=== PATIENT | female | born 1935 | race Hispanic/Latino ===

== ENCOUNTER 2018-06-16 18:33 | Emergency (ER) | payer MEDICARE, OTHER ==
[2018-06-16] MEDS ORDERED: Proparacaine 0.5% Opth 15 ML BOT ONE (20:32)
== END 2018-06-16 21:05 | disposition home or self-care (01) ==
LOC: ERS 18:33
DX: J30.2 Other seasonal allergic rhinitis (principal); E78.5 Hyperlipidemia, unspecified; I10 Essential (primary) hypertension; Z79.899 Other long term (current) drug therapy; Z79.82 Long term (current) use of aspirin
CPT/HCPCS: 99283

== ENCOUNTER 2021-11-09 14:25 | Observation (INO) | payer MEDICARE, OTHER ==
[~2021-11-09 14:25] MED LIST: Iopamidol-370 76% 500 ML 1 ML ONE
[2021-11-09 15:18] LABS: #Basophils 0.1 thou/uL (0.0-0.2); #Eosinphils 0.1 thou/uL (0.0-0.7); #Lymphocytes 2.5 thou/uL (1.20-3.40); #Monocytes 0.5 thou/uL (0.11-0.59); #Neutrophils 3.5 thou/uL (1.40-6.50); %Basophils 0.8 % (0.0-1.0); %Eosinophils 2.2 % (0.0-10.0); %Lymphocytes 37.3 % (21.0-51.0); %Monocytes 7.1 % (0.0-10.0); %Neutrophils 52.5 % (42.0-75.0); Hemoglobin 14.4 g/dL (12.0-16.0); Mean Corpuscular HGB CONC 32.9 g/dL (32.0-36.0); Mean Corpuscular Hemoglobin 32.8 pg (27.0-31.0); Mean Corpuscular Volume 99.6 fL (78.0-98.0); Mean Platelet Volume 9.4 fL (7.4-10.4); Platelet Count 243 thou/uL (130-400); Red Blood Cell (RBC) Count 4.39 mill/uL (4.20-5.40); White Blood Cell (WBC) Count 6.7 thou/uL (4.8-10.8)
[2021-11-09 15:39] LABS: ALT (SGPT) 10 U/L (8-55); AST (SGOT) 15 U/L (5-34); Albumin 3.8 g/dL (3.4-4.8); Alkaline Phosphatase 75 U/L (40-110); Anion Gap 9 mmol/L (10-20); BUN (Urea Nitrogen) 16 mg/dL (9.8-20.1); Bilirubin, Total 0.5 mg/dL (0.2-1.2); Calc. Creatinine Clearance 0 mL/min (70-130); Calcium 9.2 mg/dL (7.8-10.44); Carbon Dioxide 31 mmol/L (23-31); Chloride 103 mmol/L (98-107); Globulin 2.8 g/dL (2.4-3.5); Glucose 99 mg/dL (83-110); Potassium 3.9 mmol/L (3.5-5.1); Protein, Total 6.6 g/dL (5.8-8.1); Sodium 139 mmol/L (136-145)
[2021-11-09] MEDS ORDERED: hydrALAZINE 20 MG/ML VIAL SLOW IVP PRN (16:35)
[2021-11-09 17:57] LABS: Hemoglobin A1c 5.6 % (4.0-6.0)
[2021-11-09] MEDS ORDERED: Aspirin Chewable 81 MG TAB PO SCH (18:30)
[2021-11-09] MEDS: Enoxaparin Sodium 40 MG/0.4 ML SYRINGE SC SCH ×2 (20:30→20:31)
[2021-11-09] MEDS ORDERED: Atorvastatin Calcium 40 MG TAB PO SCH (21:00)
[2021-11-10] MEDS ORDERED: Artificial Tear Sol 15 ML BOT EA EYE PRN (00:52)
[2021-11-10 00:57] VITALS: BMI 22.5
[2021-11-10] MEDS ORDERED: Acetaminophen 325 MG TAB PO PRN (01:09)
[2021-11-10 04:46] VITALS: BP 140/68; TEMP 98.1
[2021-11-10 05:07] LABS: #Basophils 0.1 thou/uL (0.0-0.2); #Eosinphils 0.2 thou/uL (0.0-0.7); #Lymphocytes 3.5 thou/uL (1.20-3.40); #Monocytes 0.7 thou/uL (0.11-0.59); #Neutrophils 4.2 thou/uL (1.40-6.50); %Eosinophils 2.5 % (0.0-10.0); %Lymphocytes 39.8 % (21.0-51.0); %Monocytes 8.4 % (0.0-10.0); %Neutrophils 48.3 % (42.0-75.0); Hemoglobin 13.6 g/dL (12.0-16.0); Mean Corpuscular Hemoglobin 32.8 pg (27.0-31.0); Mean Corpuscular Volume 99.4 fL (78.0-98.0); Mean Platelet Volume 9.6 fL (7.4-10.4); Platelet Count 232 thou/uL (130-400); RBC Distribution Width 11.9 % (11.5-14.5); Red Blood Cell (RBC) Count 4.15 mill/uL (4.20-5.40); White Blood Cell (WBC) Count 8.7 thou/uL (4.8-10.8)
[2021-11-10 05:29] LABS: Anion Gap 13 mmol/L (10-20); BUN (Urea Nitrogen) 12 mg/dL (9.8-20.1); Calc. Creatinine Clearance 59 mL/min (70-130); Calcium 9.1 mg/dL (7.8-10.44); Carbon Dioxide 27 mmol/L (23-31); Cardiac Risk 6.5 (Less than 4.5); Chloride 106 mmol/L (98-107); Cholesterol 229 mg/dl (< 200 Desired); Glucose 92 mg/dL (83-110); HDL Cholesterol 35 mg/dL (>60 Neg Risk); LDL Cholesterol, Calculated 159 mg/dL; Potassium 3.8 mmol/L (3.5-5.1); Sodium 142 mmol/L (136-145); Triglycerides 175 mg/dL (Less than 150)
[2021-11-10] MEDS ORDERED: Enoxaparin Sodium 40 MG/0.4 ML SYRINGE SC SCH (09:00)
[2021-11-10] MEDS ORDERED: Aspirin 81 mg Enteric Coated Tablet PO SCH (09:00)
== END 2021-11-10 07:40 | disposition home or self-care (01) ==
LOC: ERS 14:25 → NEURO 16:42
PROVIDERS: ADMIT Internal Medicine; ATTEND Internal Medicine
DX: R29.810 Facial weakness (principal); R51.9 Headache, unspecified; I10 Essential (primary) hypertension; E11.9 Type 2 diabetes mellitus without complications; E78.5 Hyperlipidemia, unspecified; I65.23 Occlusion and stenosis of bilateral carotid arteries
CPT/HCPCS: 70450; 70496; 70498; 70551; 80048; 80053; 80061; 82962 ×2; 83036; 84484; 85025 ×2; 97139 ×2; 99285; G0378 ×3; 36415; 36416; J1650; Q9967

== ENCOUNTER 2023-10-14 17:52 | Inpatient (IN) | payer MEDICARE, SELFPAY ==
[~2023-10-14 17:52] MED LIST changes: -Iopamidol-370 76% 500 ML 1 ML ONE; +Iopamidol-370 76% 500 ML MDV (1 ML CHARGE) ONE
[2023-10-14 19:06] LABS: Hemoglobin 13.8 g/dL (12.0-16.0); Manual Diff?? YES; Mean Corpuscular HGB CONC 33.7 g/dL (32.0-36.0); Mean Corpuscular Hemoglobin 31.7 pg (27.0-31.0); Mean Platelet Volume 11.4 fL (7.4-10.4); Platelet Count 264 10x3/uL (130-400); RBC Distribution Width 12.4 % (11.5-14.5); Red Blood Cell (RBC) Count 4.36 mill/uL (4.20-5.40); White Blood Cell (WBC) Count 8.9 10x3/uL (4.8-10.8)
[2023-10-14 19:09] LABS: Delete Auto Diff?? YES
[2023-10-14 19:32] LABS: Bilirubin Negative (Negative); Blood, Urine Negative (Negative); CAUTI Indications for Culture Alt mental st,lethar; Clarity Clear (Clear); Glucose, Urine (Dipstick) Normal (Negative); Ketone, Urine Trace mg/dL (Negative); Leukocyte Negative Leu/uL (Negative); Mucous/LPF Rare LPF (<2+); Nitrite Negative (Negative); Protein, Urine (Dipstick) 10 mg/dL (Neg-Trace); RBC/HPF 0-3 HPF (0-3); Specific Gravity, Urine 1.019 (1.002-1.036); Squamous Epithelial None Seen HPF (0-3); WBC/HPF 0-3 HPF (0-3); pH, Urine 5.5 (5.0-9.0)
[2023-10-14 19:34] LABS: ALT (SGPT) 22 U/L (8-55); AST (SGOT) 48 U/L (5-34); Albumin 3.1 g/dL (3.4-4.8); Alkaline Phosphatase 83 U/L (40-110); Anion Gap 12 mmol/L (10-20); BUN (Urea Nitrogen) 23 mg/dL (9.8-20.1); Band 8 % (5-11); Bilirubin, Total 0.8 mg/dL (0.2-1.2); Calc. Creatinine Clearance 0 mL/min (70-130); Carbon Dioxide 32 mmol/L (23-31); CellaVision Operator ID LAB.MJL; Chloride 101 mmol/L (98-107); Estimated GFR 77; Globulin 3.8 g/dL (2.4-3.5); Glucose 104 mg/dL (83-110); Large Platelets 2.9 % (0-5); Lymphocytes 7 % (21-51); Magnesium 1.9 mg/dL (1.6-2.6); Monocytes 7 % (0-10); Neutrophil 74 % (42-75); Platelet Adequacy Comment Platelets Normal; Potassium 3.3 mmol/L (3.5-5.1); Protein, Total 6.9 g/dL (5.8-8.1); RBC Morphology Within Normal Limits; Reactive Lymphocytes 5 % (0-10); Sodium 142 mmol/L (136-145); Total Cell Count 102
[2023-10-14 19:43] LABS: Bacteria/HPF Rare-Few HPF (None Seen)
[2023-10-14 19:44] LABS: Urine Culture Reflex No No
[2023-10-14] MEDS ORDERED: Aspirin Chewable 81 MG TAB ONE (20:19)
[2023-10-14] MEDS ORDERED: Enoxaparin 60 MG (0.6 mL) SYRINGE ONE (20:19)
[2023-10-14] MEDS ORDERED: cefTRIAXone (ROCEPHIN) 2 GM VIAL ONE (21:55)
[2023-10-14] MEDS ORDERED: Sodium Chloride 0.9% 100 ML ONE (21:56)
[2023-10-14] MEDS ORDERED: Ondansetron ODT 4 MG TAB SL PRN (23:30)
[2023-10-14] MEDS ORDERED: Acetaminophen 325 MG TAB PO PRN (23:30)
[2023-10-14] MEDS ORDERED: Ondansetron PF 4 MG/2 ML Vial IVP PRN (23:30)
[2023-10-14] MEDS ORDERED: Azithromycin 500 MG VIAL ONE (23:43)
[2023-10-15 00:57] VITALS: BMI 20.2
[2023-10-15] MEDS: Azithromycin 500 MG in Sodium Chloride 0.9% 250 ML 250 ML IVPB SCH (01:36)
[2023-10-15] MEDS ORDERED: Ondansetron PF 4 MG/2 ML Vial IVP PRN (01:42)
[2023-10-15] MEDS ORDERED: Ondansetron ODT 4 MG TAB PO PRN (01:42)
[2023-10-15] MEDS ORDERED: Electrolyte Replacement Protocol 1 EACH FS PRN (01:42)
[2023-10-15 02:20] LABS: Troponin I 0.042 ng/mL (< 0.028)
[2023-10-15] MEDS: Magnesium 2 GM/50 ML(in water) 2 GM in Premix 1 BAG IVPB SCH (02:52)
[2023-10-15] MEDS: Potassium Chloride 20 MEQ TAB PO SCH ×2 (02:53→06:10)
[2023-10-15 04:48] LABS: Hematocrit 36.9 % (36.0-47.0); Hemoglobin 12.2 g/dL (12.0-16.0); Manual Diff?? YES; Mean Corpuscular HGB CONC 33.1 g/dL (32.0-36.0); Mean Corpuscular Hemoglobin 31.6 pg (27.0-31.0); Mean Corpuscular Volume 95.6 fl (78.0-98.0); Mean Platelet Volume 11.4 fL (7.4-10.4); Platelet Count 239 10x3/uL (130-400); RBC Distribution Width 12.5 % (11.5-14.5); Red Blood Cell (RBC) Count 3.86 mill/uL (4.20-5.40); White Blood Cell (WBC) Count 7.1 10x3/uL (4.8-10.8)
[2023-10-15 04:54] LABS: Delete Auto Diff?? YES
[2023-10-15 05:15] LABS: Anion Gap 11 mmol/L (10-20); BUN (Urea Nitrogen) 16 mg/dL (9.8-20.1); Calc. Creatinine Clearance 66 mL/min (70-130); Calcium 7.8 mg/dL (7.8-10.44); Carbon Dioxide 29 mmol/L (23-31); Chloride 103 mmol/L (98-107); Estimated GFR 88; Glucose 80 mg/dL (83-110); Potassium 2.7 mmol/L (3.5-5.1); Sodium 140 mmol/L (136-145)
[2023-10-15 05:19] LABS: Troponin I 0.049 ng/mL (< 0.028)
[2023-10-15 05:22] LABS: Band 3 % (5-11); CellaVision Operator ID lab.dlt; Eosinophils 2 % (0-10); Large Platelets 7.1 % (0-5); Lymphocytes 10 % (21-51); Monocytes 4 % (0-10); Neutrophil 81 % (42-75); Platelet Adequacy Comment Platelets Normal; Total Cell Count 98
[2023-10-15] MEDS: cefTRIAXone\\ROCEPHIN 1 GM in Sodium Chloride 0.9% 100 ML IVPB SCH (10:21)
[2023-10-15] MEDS: Apixaban 5 MG TAB PO SCH (10:21)
[2023-10-15] MEDS: Famotidine 20 MG TAB PO SCH (10:22)
[2023-10-15] MEDS: Doxycycline 100 MG CAP PO SCH (10:22)
[2023-10-15 12:04] LABS: Potassium 4.4 mmol/L (3.5-5.1)
[2023-10-16 04:34] LABS: Hematocrit 36.1 % (36.0-47.0); Hemoglobin 12.2 g/dL (12.0-16.0); Manual Diff?? YES; Mean Corpuscular HGB CONC 33.8 g/dL (32.0-36.0); Mean Corpuscular Hemoglobin 31.8 pg (27.0-31.0); Mean Platelet Volume 11.7 fL (7.4-10.4); Platelet Count 254 10x3/uL (130-400); RBC Distribution Width 12.5 % (11.5-14.5); Red Blood Cell (RBC) Count 3.84 mill/uL (4.20-5.40); White Blood Cell (WBC) Count 7.3 10x3/uL (4.8-10.8)
[2023-10-16 04:42] LABS: Delete Auto Diff?? YES
[2023-10-16 04:55] LABS: Anion Gap 10 mmol/L (10-20); BUN (Urea Nitrogen) 13 mg/dL (9.8-20.1); Calc. Creatinine Clearance 70 mL/min (70-130); Calcium 7.9 mg/dL (7.8-10.44); Carbon Dioxide 27 mmol/L (23-31); Chloride 104 mmol/L (98-107); Estimated GFR 89; Glucose 106 mg/dL (83-110); Potassium 3.5 mmol/L (3.5-5.1); Sodium 137 mmol/L (136-145)
[2023-10-16 05:08] LABS: Band 4 % (5-11); CellaVision Operator ID LAB.CLH1; Eosinophils 1 % (0-10); Lymphocytes 23 % (21-51); Monocytes 6 % (0-10); Neutrophil 66 % (42-75); Platelet Adequacy Comment Platelets Normal; Total Cell Count 90
[2023-10-16] MEDS: Potassium Chloride 20 MEQ TAB PO SCH (09:01)
[2023-10-17] MEDS: Amlodipine 10 MG TAB PO SCH (16:07)
[2023-10-18 05:44] LABS: #Basophils 0.1 thou/uL (0.0-0.2); #Eosinphils 0.2 thou/uL (0.0-0.7); #Monocytes 0.8 thou/uL (0.11-0.59); #Neutrophils 6.4 thou/uL (1.40-6.50); %Basophils 0.6 % (0.0-1.0); %Lymphocytes 23.9 % (21.0-51.0); %Monocytes 8.4 % (0.0-10.0); %Neutrophils 64.5 % (42.0-75.0); Hematocrit 36.7 % (36.0-47.0); Hemoglobin 12.2 g/dL (12.0-16.0); Mean Corpuscular HGB CONC 33.2 g/dL (32.0-36.0); Mean Corpuscular Hemoglobin 31.4 pg (27.0-31.0); Mean Corpuscular Volume 94.6 fl (78.0-98.0); Mean Platelet Volume 12.2 fL (7.4-10.4); Platelet Count 321 10x3/uL (130-400); RBC Distribution Width 12.8 % (11.5-14.5); Red Blood Cell (RBC) Count 3.88 mill/uL (4.20-5.40); White Blood Cell (WBC) Count 9.9 10x3/uL (4.8-10.8)
[2023-10-18 06:16] LABS: Anion Gap 10 mmol/L (10-20); BUN (Urea Nitrogen) 9 mg/dL (9.8-20.1); Calc. Creatinine Clearance 74 mL/min (70-130); Calcium 8.1 mg/dL (7.8-10.44); Carbon Dioxide 25 mmol/L (23-31); Chloride 108 mmol/L (98-107); Estimated GFR 90; Glucose 89 mg/dL (83-110); Potassium 3.7 mmol/L (3.5-5.1); Sodium 139 mmol/L (136-145)
[2023-10-18] MEDS: Amlodipine 10 MG TAB PO SCH (09:52)
[2023-10-19 05:47] LABS: #Basophils 0.1 thou/uL (0.0-0.2); #Eosinphils 0.3 thou/uL (0.0-0.7); #Neutrophils 5.8 thou/uL (1.40-6.50); %Basophils 0.6 % (0.0-1.0); %Eosinophils 2.7 % (0.0-10.0); %Lymphocytes 26.5 % (21.0-51.0); %Monocytes 10.6 % (0.0-10.0); Hematocrit 36.8 % (36.0-47.0); Hemoglobin 11.8 g/dL (12.0-16.0); Mean Corpuscular HGB CONC 32.1 g/dL (32.0-36.0); Mean Corpuscular Volume 96.6 fl (78.0-98.0); Mean Platelet Volume 11.8 fL (7.4-10.4); Platelet Count 339 10x3/uL (130-400); Red Blood Cell (RBC) Count 3.81 mill/uL (4.20-5.40); White Blood Cell (WBC) Count 9.8 10x3/uL (4.8-10.8)
[2023-10-19 06:17] LABS: Anion Gap 10 mmol/L (10-20); BUN (Urea Nitrogen) 14 mg/dL (9.8-20.1); Calc. Creatinine Clearance 64 mL/min (70-130); Calcium 8.1 mg/dL (7.8-10.44); Carbon Dioxide 22 mmol/L (23-31); Chloride 108 mmol/L (98-107); Estimated GFR 87; Glucose 89 mg/dL (83-110); Potassium 4.1 mmol/L (3.5-5.1); Sodium 136 mmol/L (136-145)
[2023-10-19] MEDS: Cefdinir 300 MG CAP PO SCH (17:55)
[2023-10-20 06:23] LABS: #Basophils 0.1 thou/uL (0.0-0.2); #Eosinphils 0.1 thou/uL (0.0-0.7); #Monocytes 0.9 thou/uL (0.11-0.59); #Neutrophils 7.1 thou/uL (1.40-6.50); %Basophils 0.5 % (0.0-1.0); %Eosinophils 1.2 % (0.0-10.0); %Lymphocytes 21.4 % (21.0-51.0); %Monocytes 8.9 % (0.0-10.0); %Neutrophils 67.7 % (42.0-75.0); Hematocrit 36.9 % (36.0-47.0); Hemoglobin 12.1 g/dL (12.0-16.0); Mean Corpuscular HGB CONC 32.8 g/dL (32.0-36.0); Mean Corpuscular Volume 94.6 fl (78.0-98.0); Platelet Count 374 10x3/uL (130-400); RBC Distribution Width 12.9 % (11.5-14.5); White Blood Cell (WBC) Count 10.4 10x3/uL (4.8-10.8)
[2023-10-20 06:47] LABS: Anion Gap 9 mmol/L (10-20); BUN (Urea Nitrogen) 16 mg/dL (9.8-20.1); Calc. Creatinine Clearance 65 mL/min (70-130); Calcium 8.3 mg/dL (7.8-10.44); Carbon Dioxide 24 mmol/L (23-31); Chloride 104 mmol/L (98-107); Estimated GFR 88; Glucose 91 mg/dL (83-110); Potassium 3.6 mmol/L (3.5-5.1); Sodium 133 mmol/L (136-145)
[2023-10-20] MEDS: Cefdinir 300 MG CAP PO SCH (09:08)
[2023-10-21 07:04] LABS: #Basophils 0.1 thou/uL (0.0-0.2); #Monocytes 1.5 thou/uL (0.11-0.59); #Neutrophils 11.2 thou/uL (1.40-6.50); %Basophils 0.3 % (0.0-1.0); %Eosinophils 0.2 % (0.0-10.0); %Lymphocytes 14.2 % (21.0-51.0); %Monocytes 10.1 % (0.0-10.0); %Neutrophils 74.7 % (42.0-75.0); Hematocrit 35.1 % (36.0-47.0); Hemoglobin 11.7 g/dL (12.0-16.0); Mean Corpuscular HGB CONC 33.3 g/dL (32.0-36.0); Mean Corpuscular Hemoglobin 31.3 pg (27.0-31.0); Mean Corpuscular Volume 93.9 fl (78.0-98.0); Mean Platelet Volume 11.5 fL (7.4-10.4); Platelet Count 381 10x3/uL (130-400); Red Blood Cell (RBC) Count 3.74 mill/uL (4.20-5.40)
[2023-10-21 07:25] LABS: Anion Gap 10 mmol/L (10-20); BUN (Urea Nitrogen) 16 mg/dL (9.8-20.1); Calc. Creatinine Clearance 56 mL/min (70-130); Calcium 8.3 mg/dL (7.8-10.44); Carbon Dioxide 27 mmol/L (23-31); Chloride 104 mmol/L (98-107); Estimated GFR 84; Glucose 134 mg/dL (83-110); Potassium 3.8 mmol/L (3.5-5.1); Sodium 137 mmol/L (136-145)
[2023-10-22 05:07] LABS: #Eosinphils 0.1 thou/uL (0.0-0.7); #Monocytes 1.4 thou/uL (0.11-0.59); #Neutrophils 10.3 thou/uL (1.40-6.50); %Basophils 0.3 % (0.0-1.0); %Eosinophils 0.4 % (0.0-10.0); %Lymphocytes 14.8 % (21.0-51.0); %Monocytes 10.3 % (0.0-10.0); %Neutrophils 73.6 % (42.0-75.0); Hematocrit 33.5 % (36.0-47.0); Hemoglobin 11.3 g/dL (12.0-16.0); Mean Corpuscular HGB CONC 33.7 g/dL (32.0-36.0); Mean Corpuscular Hemoglobin 31.8 pg (27.0-31.0); Mean Corpuscular Volume 94.4 fl (78.0-98.0); Mean Platelet Volume 11.8 fL (7.4-10.4); Platelet Count 374 10x3/uL (130-400); RBC Distribution Width 13.1 % (11.5-14.5); Red Blood Cell (RBC) Count 3.55 mill/uL (4.20-5.40)
[2023-10-22 05:34] LABS: Anion Gap 9 mmol/L (10-20); BUN (Urea Nitrogen) 12 mg/dL (9.8-20.1); Calc. Creatinine Clearance 80 mL/min (70-130); Calcium 8.4 mg/dL (7.8-10.44); Carbon Dioxide 24 mmol/L (23-31); Chloride 105 mmol/L (98-107); Estimated GFR 92; Glucose 120 mg/dL (83-110); Potassium 3.4 mmol/L (3.5-5.1); Sodium 135 mmol/L (136-145)
[2023-10-22] MEDS: Potassium Chloride 20 MEQ TAB PO SCH (10:31)
[2023-10-22] MEDS: Apixaban 5 MG TAB PO SCH (20:03)
[2023-10-23] MEDS: Amlodipine 5 MG TAB PO SCH (09:47)
[2023-10-24 05:33] LABS: #Basophils 0.1 thou/uL (0.0-0.2); #Eosinphils 0.1 thou/uL (0.0-0.7); #Monocytes 1.1 thou/uL (0.11-0.59); #Neutrophils 8.2 thou/uL (1.40-6.50); %Basophils 0.4 % (0.0-1.0); %Eosinophils 0.7 % (0.0-10.0); %Lymphocytes 18.6 % (21.0-51.0); %Monocytes 9.1 % (0.0-10.0); %Neutrophils 70.8 % (42.0-75.0); Hematocrit 32.4 % (36.0-47.0); Hemoglobin 10.8 g/dL (12.0-16.0); Mean Corpuscular HGB CONC 33.3 g/dL (32.0-36.0); Mean Corpuscular Hemoglobin 31.9 pg (27.0-31.0); Mean Corpuscular Volume 95.6 fl (78.0-98.0); Mean Platelet Volume 11.5 fL (7.4-10.4); Platelet Count 404 10x3/uL (130-400); RBC Distribution Width 13.1 % (11.5-14.5); Red Blood Cell (RBC) Count 3.39 mill/uL (4.20-5.40); White Blood Cell (WBC) Count 11.6 10x3/uL (4.8-10.8)
[2023-10-24 05:53] LABS: Anion Gap 8 mmol/L (10-20); BUN (Urea Nitrogen) 13 mg/dL (9.8-20.1); Calc. Creatinine Clearance 61 mL/min (70-130); Calcium 8.5 mg/dL (7.8-10.44); Carbon Dioxide 28 mmol/L (23-31); Chloride 101 mmol/L (98-107); Estimated GFR 86; Glucose 136 mg/dL (83-110); Sodium 133 mmol/L (136-145)
[2023-10-24] MEDS: Acetaminophen 325 MG TAB PO PRN (20:46)
[2023-10-25 06:53] LABS: #Basophils 0.1 thou/uL (0.0-0.2); #Eosinphils 0.1 thou/uL (0.0-0.7); #Monocytes 0.9 thou/uL (0.11-0.59); %Basophils 0.5 % (0.0-1.0); %Eosinophils 1.1 % (0.0-10.0); %Lymphocytes 17.1 % (21.0-51.0); %Monocytes 8.8 % (0.0-10.0); %Neutrophils 71.9 % (42.0-75.0); Hematocrit 34.1 % (36.0-47.0); Mean Corpuscular HGB CONC 32.3 g/dL (32.0-36.0); Mean Corpuscular Hemoglobin 31.2 pg (27.0-31.0); Mean Corpuscular Volume 96.6 fl (78.0-98.0); Mean Platelet Volume 11.1 fL (7.4-10.4); Platelet Count 392 10x3/uL (130-400); RBC Distribution Width 13.2 % (11.5-14.5); Red Blood Cell (RBC) Count 3.53 mill/uL (4.20-5.40); White Blood Cell (WBC) Count 9.8 10x3/uL (4.8-10.8)
[2023-10-25 07:14] LABS: Anion Gap 11 mmol/L (10-20); BUN (Urea Nitrogen) 15 mg/dL (9.8-20.1); Calc. Creatinine Clearance 70 mL/min (70-130); Calcium 8.7 mg/dL (7.8-10.44); Carbon Dioxide 25 mmol/L (23-31); Chloride 104 mmol/L (98-107); Estimated GFR 89; Glucose 133 mg/dL (83-110); Potassium 3.4 mmol/L (3.5-5.1); Sodium 137 mmol/L (136-145)
[2023-10-25] MEDS: Potassium Chloride 20 MEQ TAB PO SCH (08:41)
[2023-10-25 13:58] VITALS: BP 108/70; TEMP 97.6
== END 2023-10-25 16:35 | disposition home or self-care (01) | DRG 871 ==
LOC: ERS 17:52 → 2NO 23:24 → OBSVTOIN 10-15 12:41 → MSONC 10-16 17:23 → SURG A 10-25 11:44
PROVIDERS: ADMIT Student in an Organized Health Care Education/Training Program; ATTEND Hospitalist
PROC: 3E03329 Introduction of Other Anti-infective into Peripheral Vein, Percutaneous Approach (ICD-10-PCS; 2023-10-14)
PROC: 0T9B70Z Drainage of Bladder with Drainage Device, Via Natural or Artificial Opening (ICD-10-PCS; principal; 2023-10-15)
DX: A41.9 Sepsis, unspecified organism (principal); J18.0 Bronchopneumonia, unspecified organism; I82.432 Acute embolism and thrombosis of left popliteal vein; I5A Non-ischemic myocardial injury (non-traumatic); I10 Essential (primary) hypertension; Z90.49 Acquired absence of other specified parts of digestive tract; Z98.890 Other specified postprocedural states; Z79.01 Long term (current) use of anticoagulants; Z79.899 Other long term (current) drug therapy; E78.00 Pure hypercholesterolemia, unspecified; R62.7 Adult failure to thrive; Z68.20 Body mass index [BMI] 20.0-20.9, adult
CPT/HCPCS: 36415; 51701; 70450; 71045; 71275; 72125; 80048; 80053; 81001; 82550; 83605; 83735; 84443; 84484; 85025; 87804; 93005; 93010; 96365; 96367; 96372; 96375; 96376; G0378; J0456; J0696; J1650; J3475; J3490; J7050; Q9967

== ENCOUNTER 2023-10-27 12:57 | Emergency (ER) | payer MEDICARE ==
[2023-10-27 13:45] LABS: #Basophils 0.1 thou/uL (0.0-0.2); #Eosinphils 0.2 thou/uL (0.0-0.7); #Monocytes 0.6 thou/uL (0.11-0.59); #Neutrophils 6.5 thou/uL (1.40-6.50); %Basophils 0.7 % (0.0-1.0); %Eosinophils 1.7 % (0.0-10.0); %Lymphocytes 18.8 % (21.0-51.0); %Neutrophils 71.6 % (42.0-75.0); Hemoglobin 10.6 g/dL (12.0-16.0); Mean Corpuscular HGB CONC 33.1 g/dL (32.0-36.0); Mean Corpuscular Hemoglobin 31.4 pg (27.0-31.0); Mean Corpuscular Volume 94.7 fl (78.0-98.0); Mean Platelet Volume 10.7 fL (7.4-10.4); Platelet Count 357 10x3/uL (130-400); RBC Distribution Width 13.1 % (11.5-14.5); Red Blood Cell (RBC) Count 3.38 mill/uL (4.20-5.40)
[2023-10-27 14:10] LABS: ALT (SGPT) 23 U/L (8-55); AST (SGOT) 28 U/L (5-34); Albumin 2.5 g/dL (3.4-4.8); Alkaline Phosphatase 89 U/L (40-110); Anion Gap 11 mmol/L (10-20); BUN (Urea Nitrogen) 16 mg/dL (9.8-20.1); Bilirubin, Total 0.6 mg/dL (0.2-1.2); Calc. Creatinine Clearance 0 mL/min (70-130); Calcium 8.6 mg/dL (7.8-10.44); Carbon Dioxide 24 mmol/L (23-31); Chloride 106 mmol/L (98-107); Estimated GFR 88; Globulin 4.2 g/dL (2.4-3.5); Glucose 105 mg/dL (83-110); Potassium 4.4 mmol/L (3.5-5.1); Protein, Total 6.7 g/dL (5.8-8.1); Sodium 137 mmol/L (136-145)
[2023-10-27] MEDS ORDERED: Lidocaine 1% w/Epinephrine 1:100K 20 ML VIAL ONE (14:46)
[2023-10-27 17:24] LABS: RBC Count-Automated (BF) 118143 /cu.mm; WBC/Nucleated-Auto (BF) 295 /cu.mm
[2023-10-27 17:25] LABS: BF Color Red; Body Fluid Source Synovial Fluid; Clarity Cloudy/Turbid (Clear); Tube # EDTA
[2023-10-27] MEDS ORDERED: Acetaminophen 500 MG TAB ONE (19:15)
[2023-10-27 20:27] LABS: BF Segmented Neutrophils 77 %; Cell Count Non Hematic 10 %; Lymphocytes 12 %
== END 2023-10-27 20:42 ==
LOC: ERS 12:57
DX: M25.062 Hemarthrosis, left knee (principal); I10 Essential (primary) hypertension; E78.00 Pure hypercholesterolemia, unspecified; Z96.651 Presence of right artificial knee joint
CPT/HCPCS: 20610; 36416; 71045; 80053; 82945; 85025; 85060; 86140; 87070; 87205; 89051; 89060

== ENCOUNTER 2023-11-01 19:07 | Emergency (ER) | payer MEDICARE ==
[2023-11-01 21:14] LABS: #Monocytes 0.5 thou/uL (0.11-0.59); #Neutrophils 11.9 thou/uL (1.40-6.50); %Basophils 0.3 % (0.0-1.0); %Eosinophils 0.2 % (0.0-10.0); %Monocytes 3.4 % (0.0-10.0); %Neutrophils 89.6 % (42.0-75.0); Hematocrit 41.5 % (36.0-47.0); Hemoglobin 13.4 g/dL (12.0-16.0); Mean Corpuscular HGB CONC 32.3 g/dL (32.0-36.0); Mean Corpuscular Hemoglobin 30.7 pg (27.0-31.0); Mean Platelet Volume 11.1 fL (7.4-10.4); Platelet Count 400 10x3/uL (130-400); RBC Distribution Width 13.2 % (11.5-14.5); Red Blood Cell (RBC) Count 4.37 mill/uL (4.20-5.40); White Blood Cell (WBC) Count 13.2 10x3/uL (4.8-10.8)
[2023-11-01 21:27] LABS: INR-International Normal Ratio 1.2; Prothrombin Time 15.3 sec (12.0-14.7)
[2023-11-01 21:36] LABS: ALT (SGPT) 14 U/L (8-55); AST (SGOT) 16 U/L (5-34); Albumin 3.5 g/dL (3.4-4.8); Alkaline Phosphatase 115 U/L (40-110); Anion Gap 17 mmol/L (10-20); BUN (Urea Nitrogen) 19 mg/dL (9.8-20.1); Bilirubin, Total 1.3 mg/dL (0.2-1.2); Calc. Creatinine Clearance 0 mL/min (70-130); Calcium 9.8 mg/dL (7.8-10.44); Carbon Dioxide 26 mmol/L (23-31); Chloride 102 mmol/L (98-107); Estimated GFR 84; Globulin 4.9 g/dL (2.4-3.5); Glucose 117 mg/dL (83-110); Potassium 4.1 mmol/L (3.5-5.1); Protein, Total 8.4 g/dL (5.8-8.1); Sodium 141 mmol/L (136-145)
[2023-11-01 21:39] LABS: Troponin I Less than 0.010 ng/mL (< 0.028)
[2023-11-01] MEDS ORDERED: Ketorolac Tromethamine 30 MG (1 mL) VIAL ONE (21:59)
[2023-11-01 22:13] LABS: SARS-CoV-2 NAA Rapid Test Not Detected (NotDetected)
[2023-11-02] MEDS ORDERED: Apixaban 5 MG TAB ONE (02:07)
== END 2023-11-02 02:37 ==
LOC: ERS 19:07
DX: I82.412 Acute embolism and thrombosis of left femoral vein (principal); M62.81 Muscle weakness (generalized); I10 Essential (primary) hypertension
CPT/HCPCS: 0240U; 71275; 80053; 84484; 85025; 85610; 85730; 93005; 36415; 96374; J1885; Q9967

== ENCOUNTER 2025-05-29 18:13 | Observation (INO) | payer MEDICARE, OTHER ==
[2025-05-29 18:32] LABS: #Basophils 0.09 10x3/uL (0.0-0.2); #Eosinophils 0.19 10x3/uL (0.0-0.7); #Monocytes 0.59 10x3/uL (0.11-0.59); #Neutrophils 5.67 10x3/uL (1.40-6.50); %Basophils 1.0 % (0.0-1.0); %Eosinophils 2.0 % (0.0-10.0); %Lymphocytes 29.4 % (21.0-51.0); %Monocytes 6.4 % (0.0-10.0); %Neutrophils 61.0 % (42.0-75.0); Hematocrit 40.2 % (36.0-47.0); Hemoglobin 13.2 g/dL (12.0-16.0); Mean Corpuscular Hemoglobin 30.6 pg (27.0-31.0); Mean Corpuscular Volume 93.1 fL (78.0-98.0); Platelet Count 266 10x3/uL (130-400); Red Blood Cell (RBC) Count 4.32 mill/uL (4.20-5.40); White Blood Cell (WBC) Count 9.29 10x3/uL (4.8-10.8)
[2025-05-29 18:50] LABS: Lipase 30 U/L (8-78)
[2025-05-29 18:52] LABS: ALT (SGPT) 9 U/L (Less than 34); AST (SGOT) 18 U/L (11-34); Acetaminophen Less than 10 mcg/mL (Less than 10); Albumin 3.8 g/dL (3.1-4.5); Alkaline Phosphatase 97 U/L (40-110); Anion Gap 12 mmol/L (10-20); BUN (Urea Nitrogen) 16 mg/dL (9.8-20.1); Bilirubin, Total 0.5 mg/dL (0.3-1.2); CK (CPK) 36 U/L (29-168); Calc. Creatinine Clearance 0 mL/min (70-130); Calcium 8.9 mg/dL (7.8-10.44); Carbon Dioxide 27 mmol/L (23-31); Chloride 107 mmol/L (98-107); Globulin 3.0 g/dL (2.4-3.5); Glucose 98 mg/dL (83-110); Potassium 3.9 mmol/L (3.5-5.1); Salicylate Less than 8.0 mg/dL (Less than 8.0); Sodium 142 mmol/L (136-145)
[2025-05-29] MEDS ORDERED: Aspirin Chewable 81 MG TAB ONE (20:08)
[2025-05-29] MEDS ORDERED: Senokot S 8.6-50 MG TAB PO PRN (20:20)
[2025-05-29] MEDS ORDERED: Calcium Carbonate 500 MG ChewTAB PO PRN (20:20)
[2025-05-29] MEDS ORDERED: Ondansetron PF 4 MG/2 ML Vial IVP PRN (20:20)
[2025-05-29] MEDS ORDERED: Acetaminophen 325 MG TAB PO PRN (20:20)
[2025-05-29] MEDS ORDERED: Pantoprazole 40 MG DR.TAB PO SCH (20:30)
[2025-05-29] MEDS ORDERED: Ketorolac Tromethamine 30 MG (1 mL) VIAL IVP SCH (20:30)
[2025-05-29] MEDS ORDERED: valACYclovir 500 MG TAB PO SCH (21:00)
[2025-05-29] MEDS ORDERED: Rosuvastatin 20 MG TAB PO SCH (21:00)
[2025-05-29] MEDS ORDERED: predniSONE 20 MG TAB PO SCH (21:00)
[2025-05-29 22:21] VITALS: BP 213/104; TEMP 97.4
[2025-05-30] MEDS ORDERED: Pantoprazole 40 MG DR.TAB PO SCH (09:00)
[2025-05-30] MEDS ORDERED: Aspirin 81 mg Enteric Coated Tablet PO SCH (09:00)
[2025-05-30] MEDS ORDERED: Enoxaparin 40 MG (0.4 mL) SYRINGE SC SCH (09:00)
== END 2025-05-30 01:43 | disposition left against medical advice (07) ==
LOC: ERS 18:13 → PCU 20:09
PROVIDERS: ADMIT Student in an Organized Health Care Education/Training Program; ATTEND Student in an Organized Health Care Education/Training Program
DX: G51.0 Bell's palsy (principal); R53.1 Weakness; R29.90 Unspecified symptoms and signs involving the nervous system; I16.0 Hypertensive urgency; E78.5 Hyperlipidemia, unspecified; I10 Essential (primary) hypertension; Z79.899 Other long term (current) drug therapy
CPT/HCPCS: 70450; 71045; 73030; 80307; 82550; 83690; 84484; 93005; 99285; G0378 ×3; 80053; 84443; 85025

== ENCOUNTER 2025-09-11 04:40 | Inpatient (IN) | payer MEDICARE, OTHER ==
[2025-09-11 05:58] LABS: #Basophils 0.06 10x3/uL (0.0-0.2); #Eosinophils 0.17 10x3/uL (0.0-0.7); #Monocytes 0.50 10x3/uL (0.11-0.59); #Neutrophils 7.21 10x3/uL (1.40-6.50); %Basophils 0.6 % (0.0-1.0); %Eosinophils 1.8 % (0.0-10.0); %Lymphocytes 14.9 % (21.0-51.0); %Monocytes 5.3 % (0.0-10.0); %Neutrophils 77.1 % (42.0-75.0); Hematocrit 37.1 % (36.0-47.0); Hemoglobin 12.5 g/dL (12.0-16.0); Mean Corpuscular Hemoglobin 31.2 pg (27.0-31.0); Mean Corpuscular Volume 92.5 fL (78.0-98.0); Platelet Count 271 10x3/uL (130-400); Red Blood Cell (RBC) Count 4.01 mill/uL (4.20-5.40); White Blood Cell (WBC) Count 9.37 10x3/uL (4.8-10.8)
[2025-09-11 06:06] LABS: INR-International Normal Ratio 1.1; Prothrombin Time 14.2 sec (12.0-14.7)
[2025-09-11 06:07] LABS: PTT 27.9 sec (22.9-36.1)
[2025-09-11] MEDS ORDERED: Acetaminophen 325 MG TAB PO PRN (06:14)
[2025-09-11] MEDS ORDERED: hydrALAZINE 20 MG/ML VIAL SLOW IVP PRN (06:14)
[2025-09-11] MEDS ORDERED: Ondansetron PF 4 MG/2 ML Vial IVP PRN (06:14)
[2025-09-11 06:29] LABS: ALT (SGPT) Less than 7 U/L (Less than 34); AST (SGOT) 27 U/L (11-34); Albumin 3.4 g/dL (3.1-4.5); Alkaline Phosphatase 99 U/L (40-110); Anion Gap 11 mmol/L (10-20); BUN (Urea Nitrogen) 14 mg/dL (9.8-20.1); Bilirubin, Total 0.2 mg/dL (0.3-1.2); Calc. Creatinine Clearance 0 mL/min (70-130); Calcium 8.7 mg/dL (7.8-10.44); Carbon Dioxide 25 mmol/L (23-31); Chloride 110 mmol/L (98-107); Globulin 3.3 g/dL (2.4-3.5); Glucose 149 mg/dL (83-110); Potassium 3.3 mmol/L (3.5-5.1); Sodium 143 mmol/L (136-145)
[2025-09-11 09:39] VITALS: BMI 19.8
[2025-09-11] MEDS: DULoxetine 30 MG CAP PO SCH (16:44)
[2025-09-11 18:49] VITALS: BP 126/62; TEMP 98.3
[2025-09-11] MEDS ORDERED: Gabapentin 100 MG CAP PO SCH (21:00)
[2025-09-12] MEDS ORDERED: DULoxetine 30 MG CAP PO SCH (09:00)
[2025-09-12] MEDS ORDERED: Metoprolol Succinate XL 50 MG ER.TAB PO SCH (09:00)
[2025-09-12] MEDS ORDERED: Lisinopril 20 MG TAB PO SCH (09:00)
== END 2025-09-11 18:30 | disposition home or self-care (01) | DRG 125 ==
LOC: ERS 04:40 → IMCU/EMU 06:16
PROVIDERS: ADMIT Surgery Trauma Surgery; ATTEND Surgery Trauma Surgery
PROC: 0HQ1XZZ Repair Face Skin, External Approach (ICD-10-PCS; principal; 2025-09-11)
DX: S01.112A Laceration without foreign body of left eyelid and periocular area, initial encounter (principal); F03.90 Unspecified dementia, unspecified severity, without behavioral disturbance, psychotic disturbance, mood disturbance, and anxiety; I10 Essential (primary) hypertension; Z79.899 Other long term (current) drug therapy; Z79.02 Long term (current) use of antithrombotics/antiplatelets; Z99.3 Dependence on wheelchair; Z86.73 Personal history of transient ischemic attack (TIA), and cerebral infarction without residual deficits; E78.00 Pure hypercholesterolemia, unspecified; I48.91 Unspecified atrial fibrillation; Z90.49 Acquired absence of other specified parts of digestive tract; Z98.890 Other specified postprocedural states; W05.0XXA Fall from non-moving wheelchair, initial encounter; Y92.009 Unspecified place in unspecified non-institutional (private) residence as the place of occurrence of the external cause
CPT/HCPCS: 12011; 70450; 72125; 80053; 85025; 85610; 85730; G0390